=== PATIENT | male | born 1985 | race Asian ===

== ENCOUNTER 2018-11-13 01:14 | Emergency (ER) | payer SELFPAY ==
[~2018-11-13] VITALS: Ht 167.6 cm; Wt 73.5 kg
[2018-11-13 01:26] VITALS: Ht 167.6 cm; Wt 73.5 kg
[2018-11-13 04:03] VITALS: BP 139/68
== END 2018-11-13 04:03 | disposition home or self-care (01) ==
LOC: EDSEX 01:14 → ED 01:14
DX: S61.551A Open bite of right wrist, initial encounter (principal); Z98.890 Other specified postprocedural states; W54.0XXA Bitten by dog, initial encounter; Y93.01 Activity, walking, marching and hiking; Y92.89 Other specified places as the place of occurrence of the external cause; Y99.8 Other external cause status
CPT/HCPCS: 90715